=== PATIENT | female | born 1940 | race Caucasian/White ===

== ENCOUNTER → 2016-04-24 | Outpatient (CLI) | payer OTHER | LOC: US 12:49 | DX: N18.3 Chronic kidney disease, stage 3 (moderate) (principal) ==

== ENCOUNTER → 2016-06-05 | Outpatient (CLI) | payer OTHER | LOC: MAMO 04-28 14:10 | DX: Z12.31 Encounter for screening mammogram for malignant neoplasm of breast (principal) | CPT/HCPCS: G0202 ==

== ENCOUNTER → 2020-04-14 | Outpatient (CLI) | payer OTHER | LOC: EXRD 11:19 | DX: N18.30 Chronic kidney disease, stage 3 unspecified (principal); R93.41 Abnormal radiologic findings on diagnostic imaging of renal pelvis, ureter, or bladder | CPT/HCPCS: 76775 ==

== ENCOUNTER → 2020-12-01 | Outpatient (CLI) | payer OTHER | LOC: HEART 5 15:50 | DX: R00.2 Palpitations (principal) ==

== ENCOUNTER → 2020-12-08 | Outpatient (CLI) | payer OTHER | LOC: HEART 5 07:46 | DX: R00.2 Palpitations (principal); I08.3 Combined rheumatic disorders of mitral, aortic and tricuspid valves; I70.0 Atherosclerosis of aorta | CPT/HCPCS: 93306 ==

== ENCOUNTER → 2021-01-13 | Outpatient (CLI) | payer OTHER | LOC: HEART 5 08:57 | DX: I20.8 Other forms of angina pectoris (principal) | CPT/HCPCS: 78452; A9502; J2785 ==

== ENCOUNTER → 2021-01-31 | Outpatient (CLI) | payer OTHER ==
[~2021-01-31] MED LIST: ASPIRIN81 MG PO; CALCIUM 600 +1 EAC7 PO; CLARITIN10 M2 PO; COZAAR100 MG PO; ELIQUIS5 MG PO; LEVOTHYROXINE75 MC1 PO; LIPITOR20 MG PO; NORVASC10 MG PO; PEPCID20 MG PO; REMERON 15 MG T15 MG PO; SINGULAIR10 MG PO; SOTALOL80 MG PO; TOPROL XL100 MG PO; VITAMIN D31250 MCG PO
[2021-01-31 09:33] LABS: HEMOGLOBIN 12.6 gm/dl (12.3-15.3); RED BLOOD COUNT 3.89 M/UL (4.00-5.10); WHITE BLOOD COUNT 7.8 K/UL (4.5-11.0)
== END ==
LOC: LAB 08:04
PROVIDERS: Internal Medicine Cardiovascular Disease
DX: I48.92 Unspecified atrial flutter (principal); R00.2 Palpitations
CPT/HCPCS: 36415; 71046; 80048; 85025

== ENCOUNTER → 2021-02-01 | Outpatient (CLI) | payer OTHER | LOC: CATH 09:24 | DX: I48.3 Typical atrial flutter (principal); I25.118 Atherosclerotic heart disease of native coronary artery with other forms of angina pectoris; I12.9 Hypertensive chronic kidney disease with stage 1 through stage 4 chronic kidney disease, or unspecified chronic kidney disease; N18.30 Chronic kidney disease, stage 3 unspecified; E78.5 Hyperlipidemia, unspecified; I25.5 Ischemic cardiomyopathy; K21.9 Gastro-esophageal reflux disease without esophagitis; E03.9 Hypothyroidism, unspecified; Z95.1 Presence of aortocoronary bypass graft; Z79.82 Long term (current) use of aspirin; Z79.899 Other long term (current) drug therapy; Z20.822 Contact with and (suspected) exposure to COVID-19 | CPT/HCPCS: 93005; 93609; 93620; 93621; 99152; 99153; C1730; C1733; C1766; J0360; J1644; J2250; J3010; J7030; J7040 ==

== ENCOUNTER 2021-04-27 11:38 | Observation (INO) | payer OTHER ==
[~2021-04-27] VITALS: Ht 172.7 cm; Wt 101.6 kg
[~2021-04-27 11:38] MED LIST changes: -CLARITIN10 M2 PO; +CLARITIN10 MG PO; -LEVOTHYROXINE75 MC1 PO; +LEVOTHYROXINE75 MCG PO
[2021-04-27 13:01] LABS: HEMOGLOBIN 12.8 gm/dl (12.3-15.3); RED BLOOD COUNT 3.98 M/UL (4.00-5.10); WHITE BLOOD COUNT 8.5 K/UL (4.5-11.0)
[2021-04-27 13:58] LABS: BUN/CREATININE RATIO 16 (0-10)
[2021-04-27] MEDS ORDERED: SOTALOL80 MG PO (15:11)
[2021-04-27] MEDS ORDERED: CHLORTHALIDONE25 MG PO (15:12)
[2021-04-27 19:03] LABS: BUN/CREATININE RATIO 16 (0-10)
[2021-04-28 03:03] LABS: HEMOGLOBIN 11.5 gm/dl (12.3-15.3); WHITE BLOOD COUNT 9.3 K/UL (4.5-11.0)
[2021-04-28 03:16] LABS: RED BLOOD COUNT 3.54 M/UL (4.00-5.10)
--- NOTE | 2021-04-28 14:30 | NUR ---
Thigh high compression stockings placed on patient.
[2021-04-29 17:09] LABS: BUN/CREATININE RATIO 19 (0-10)
[2021-04-30 05:18] LABS: HEMOGLOBIN 12.4 gm/dl (12.3-15.3); RED BLOOD COUNT 3.82 M/UL (4.00-5.10); WHITE BLOOD COUNT 8.3 K/UL (4.5-11.0)
[2021-04-30 05:34] LABS: BUN/CREATININE RATIO 17 (0-10)
== END 2021-04-30 11:20 | disposition home or self-care (01) ==
LOC: ER1 11:38 → M/S 14:00 → CDU 14:00 → M/S 17:18
PROVIDERS: Emergency Medicine; Physician Assistant; Physician Assistant Medical; ADMIT Internal Medicine
DX: R55 Syncope and collapse (principal); E87.1 Hypo-osmolality and hyponatremia; E87.6 Hypokalemia; I25.10 Atherosclerotic heart disease of native coronary artery without angina pectoris; I48.92 Unspecified atrial flutter; I47.1 Supraventricular tachycardia; R00.1 Bradycardia, unspecified; I12.9 Hypertensive chronic kidney disease with stage 1 through stage 4 chronic kidney disease, or unspecified chronic kidney disease; N18.30 Chronic kidney disease, stage 3 unspecified; E03.9 Hypothyroidism, unspecified; E78.5 Hyperlipidemia, unspecified; I65.29 Occlusion and stenosis of unspecified carotid artery; I48.91 Unspecified atrial fibrillation; Z95.1 Presence of aortocoronary bypass graft; Z86.73 Personal history of transient ischemic attack (TIA), and cerebral infarction without residual deficits; Z79.82 Long term (current) use of aspirin; Z20.822 Contact with and (suspected) exposure to COVID-19
CPT/HCPCS: 36415; 70450; 71045; 80048; 80053; 81001; 82436; 82550; 82553; 83735; 83935; 84132; 84133; 84300; 84439; 84443; 84484; 85025; 85027; 93005; 93880; 99285; G0378; J7030; U0002

== ENCOUNTER → 2021-06-13 | Outpatient (CLI) | payer OTHER ==
[~2021-06-13] MED LIST changes: +CHLORTHALIDONE25 MG PO
[2021-06-13 10:38] LABS: HEMOGLOBIN 12.9 gm/dl (12.3-15.3); WHITE BLOOD COUNT 7.8 K/UL (4.5-11.0)
== END ==
LOC: LAB 10:08
PROVIDERS: Internal Medicine Cardiovascular Disease
DX: I10 Essential (primary) hypertension (principal); I25.10 Atherosclerotic heart disease of native coronary artery without angina pectoris; I47.1 Supraventricular tachycardia; I20.8 Other forms of angina pectoris; R94.39 Abnormal result of other cardiovascular function study
CPT/HCPCS: 36415; 80048; 85025

== ENCOUNTER 2021-06-21 08:13 | Outpatient (CLI) | payer OTHER ==
[~2021-06-21] VITALS: Ht 152.4 cm; Wt 102.0 kg
[2021-06-21] MEDS ORDERED: VITAMIN D21250 MCG PO (08:56)
[2021-06-21] MEDS ORDERED: ISOSORBIDE MONO30 MG PO (08:57)
[2021-06-21] MEDS ORDERED: SOTALOL80 MG PO (08:58)
[2021-06-21 19:42] LABS: HEMOGLOBIN 11.9 gm/dl (12.3-15.3); RED BLOOD COUNT 3.68 M/UL (4.00-5.10); WHITE BLOOD COUNT 7.7 K/UL (4.5-11.0)
[2021-06-21 19:58] LABS: BUN/CREATININE RATIO 15 (0-10)
[2021-06-22 04:04] LABS: HEMOGLOBIN 11.2 gm/dl (12.3-15.3); RED BLOOD COUNT 3.5 M/UL (4.00-5.10); WHITE BLOOD COUNT 8.2 K/UL (4.5-11.0)
[2021-06-22] MEDS ORDERED: BRILINTA90 MG PO (09:20)
[2021-06-22] MEDS ORDERED: LIPITOR40 MG PO (09:20)
== END 2021-06-22 10:56 | disposition home or self-care (01) ==
LOC: CATH 08:13 → PROG CARE 08:13 → CATH 09:00 → PROG CARE 13:30 → CATH 06-22 10:56
PROVIDERS: Internal Medicine Cardiovascular Disease
DX: I25.798 Atherosclerosis of other coronary artery bypass graft(s) with other forms of angina pectoris (principal); I49.5 Sick sinus syndrome; I48.0 Paroxysmal atrial fibrillation; I25.5 Ischemic cardiomyopathy; I13.0 Hypertensive heart and chronic kidney disease with heart failure and stage 1 through stage 4 chronic kidney disease, or unspecified chronic kidney disease; N18.30 Chronic kidney disease, stage 3 unspecified; I50.22 Chronic systolic (congestive) heart failure; E78.5 Hyperlipidemia, unspecified; E03.9 Hypothyroidism, unspecified; I47.1 Supraventricular tachycardia; I48.92 Unspecified atrial flutter; K21.9 Gastro-esophageal reflux disease without esophagitis; E78.00 Pure hypercholesterolemia, unspecified; Z95.1 Presence of aortocoronary bypass graft; Z79.82 Long term (current) use of aspirin; Z82.49 Family history of ischemic heart disease and other diseases of the circulatory system; Z86.73 Personal history of transient ischemic attack (TIA), and cerebral infarction without residual deficits; Z20.822 Contact with and (suspected) exposure to COVID-19
CPT/HCPCS: 36415; 80048; 82550; 82553; 84484; 85027; 85347; 93005; 99152; 99153; C1725; C1769; C1874; C1887; C9600; J0461; J1170; J1644; J2250; J2405; J3010; J3246; J7030; J7040; Q9967

== ENCOUNTER → 2021-07-06 | Outpatient (CLI) | payer OTHER ==
[~2021-07-06] MED LIST changes: +BRILINTA90 MG PO; +ISOSORBIDE MONO30 MG PO; +LIPITOR40 MG PO; +VITAMIN D21250 MCG PO
== END ==
LOC: HEART 5 13:15
DX: I49.5 Sick sinus syndrome (principal); R00.1 Bradycardia, unspecified; I25.10 Atherosclerotic heart disease of native coronary artery without angina pectoris; I07.1 Rheumatic tricuspid insufficiency
CPT/HCPCS: 93306

== ENCOUNTER 2021-08-02 08:42 | Outpatient (CLI) | payer OTHER ==
[~2021-08-02] VITALS: Ht 172.7 cm; Wt 101.6 kg
[2021-08-02 22:27] LABS: HEMOGLOBIN 12.3 gm/dl (12.3-15.3); RED BLOOD COUNT 3.84 M/UL (4.00-5.10); WHITE BLOOD COUNT 7.9 K/UL (4.5-11.0)
[2021-08-02 22:44] LABS: BUN/CREATININE RATIO 18 (0-10)
[2021-08-03 04:20] LABS: HEMOGLOBIN 11.7 gm/dl (12.3-15.3); RED BLOOD COUNT 3.66 M/UL (4.00-5.10); WHITE BLOOD COUNT 8.8 K/UL (4.5-11.0)
[2021-08-03 08:51] LABS: BUN/CREATININE RATIO 17 (0-10)
[2021-08-03] MEDS ORDERED: NITROSTAT0.4 MG SL (14:01)
== END 2021-08-03 14:54 | disposition home or self-care (01) ==
LOC: CATH 08:42 → PROG CARE 08:42 → CATH 10:00 → PROG CARE 15:44 → CATH 08-03 14:54
PROVIDERS: Internal Medicine Interventional Cardiology
DX: T82.855A Stenosis of coronary artery stent, initial encounter (principal); I25.118 Atherosclerotic heart disease of native coronary artery with other forms of angina pectoris; I13.0 Hypertensive heart and chronic kidney disease with heart failure and stage 1 through stage 4 chronic kidney disease, or unspecified chronic kidney disease; N18.30 Chronic kidney disease, stage 3 unspecified; I50.22 Chronic systolic (congestive) heart failure; I48.92 Unspecified atrial flutter; K21.9 Gastro-esophageal reflux disease without esophagitis; E78.00 Pure hypercholesterolemia, unspecified; E03.9 Hypothyroidism, unspecified; Y71.2 Prosthetic and other implants, materials and accessory cardiovascular devices associated with adverse incidents; Y83.8 Other surgical procedures as the cause of abnormal reaction of the patient, or of later complication, without mention of misadventure at the time of the procedure; Z95.1 Presence of aortocoronary bypass graft; Z79.82 Long term (current) use of aspirin; Z86.73 Personal history of transient ischemic attack (TIA), and cerebral infarction without residual deficits
CPT/HCPCS: 36415; 71045; 80048; 82550; 82553; 84484; 85025; 85347; 99152; 99153; C9600; C9601; J0461; J1170; J1644; J2250; J2405; J3010; J3246; Q9965

== ENCOUNTER 2021-09-04 19:08 | Emergency (ER) | payer OTHER ==
[~2021-09-04 19:08] MED LIST changes: +NITROSTAT0.4 MG SL
[2021-09-04 19:49] LABS: HEMOGLOBIN 12.9 gm/dl (12.3-15.3); RED BLOOD COUNT 4.11 M/UL (4.00-5.10); WHITE BLOOD COUNT 7.1 K/UL (4.5-11.0)
== END 2021-09-05 09:13 | disposition short-term general hospital (02) ==
LOC: ER1 19:08
PROVIDERS: Family Medicine
DX: I63.9 Cerebral infarction, unspecified (principal); I10 Essential (primary) hypertension; R29.702 NIHSS score 2; I25.10 Atherosclerotic heart disease of native coronary artery without angina pectoris; Z79.82 Long term (current) use of aspirin; Z79.02 Long term (current) use of antithrombotics/antiplatelets; Z79.899 Other long term (current) drug therapy; Z20.822 Contact with and (suspected) exposure to COVID-19
CPT/HCPCS: 70450; 70496; 70498; 71045; 80053; 80307; 81001; 82550; 82553; 83605; 83690; 83735; 84439; 84443; 84484; 85025; 93005; 96372; 96374; 99285; G0480; J2405; J3486; Q9967; U0002

== ENCOUNTER → 2021-10-31 | Outpatient (CLI) | payer OTHER | LOC: HEART 5 15:09 | DX: Z86.73 Personal history of transient ischemic attack (TIA), and cerebral infarction without residual deficits (principal) ==